=== PATIENT | male | born 1985 | race Caucasian/White ===

== ENCOUNTER 2022-01-19 04:09 | Inpatient (IN) | payer OTHER ==
[~2022-01-19] VITALS: Ht 256.5 cm; Wt 106.6 kg
[~2022-01-19 04:09] MED LIST: TENCON TABLET1 TAB PO
== END 2022-01-24 17:23 | disposition home or self-care (01) | DRG 371 ==
LOC: ER 04:09 → SEC-K 12:59 → SURH 15:44
PROVIDERS: ADMIT Surgery; ATTEND Surgery
PROC: BW21YZZ Computerized Tomography (CT Scan) of Abdomen and Pelvis using Other Contrast (ICD-10-PCS; 2022-01-19)
PROC: 02HV33Z Insertion of Infusion Device into Superior Vena Cava, Percutaneous Approach (ICD-10-PCS; principal; 2022-01-20)
DX: K35.890 Other acute appendicitis without perforation or gangrene (principal); K85.80 Other acute pancreatitis without necrosis or infection; Z20.822 Contact with and (suspected) exposure to COVID-19; R10.31 Right lower quadrant pain; D72.828 Other elevated white blood cell count